=== PATIENT | male | born 1975 | race Caucasian/White ===

== ENCOUNTER 2024-01-02 12:35 | Inpatient (IN) | payer MEDICAID ==
[~2024-01-02] VITALS: Ht 160 cm; Wt 78.0 kg
[2024-01-02] MEDS ORDERED: SWABABLE VALVE TRANSFER SET EA MC ONE (13:13)
[2024-01-02] MEDS ORDERED: IV NORMAL SALINE 250 ML IV ONE (13:13)
[2024-01-02] MEDS ORDERED: IOHEXOL 350 100 ML INFUS..BTL ONE (13:13)
[2024-01-02 13:22] LABS: BASOPHILS % (AUTO) 0.8 % (0.0-2.0); EOSINOPHILS # (AUTO) 0.1 K/uL (0.0-0.7); EOSINOPHILS % (AUTO) 3.1 % (0.0-7.0); HEMATOCRIT 41.2 % (36.7-47.1); HEMOGLOBIN 14.5 g/dL (12.5-16.3); LYMPHOCYTES # (AUTO) 1.5 K/uL (0.8-4.8); LYMPHOCYTES % (AUTO) 33.6 % (20.5-51.5); MEAN CORPUSCULAR HEMOGLOBIN 29.9 uug (23.8-33.4); MEAN CORPUSCULAR HGB CONC 35 g/dL (32.5-36.3); MEAN CORPUSCULAR VOLUME 85.4 fL (73.0-96.2); MONOCYTES # (AUTO) 0.3 K/uL (0.1-1.30); MONOCYTES % (AUTO) 6.6 % (0.0-11.0); NEUTROPHILS # (AUTO) 2.5 K/uL (1.8-8.9); NEUTROPHILS % (AUTO) 55.9 % (38.5-71.5); PLATELET COUNT (AUTO) 150 K/uL (152-348); RED BLOOD CELL COUNT(AUTO) 4.83 MIL/uL (4.06-5.63); RED CELL DISTRIBUTION WIDTH 13.1 % (12.1-16.2); WHITE BLOOD COUNT (AUTO) 4.5 K/uL (3.6-10.2)
[2024-01-02 13:25] LABS: DIFFERENTIAL COMMENT 1
[2024-01-02 13:34] LABS: CALCIUM 8.8 mg/dL (8.5-10.1); CARBON DIOXIDE 26 mmol/L (21-32); CHLORIDE 106 mmol/L (98-107); CREATININE 0.8 mg/dL (0.6-1.3); GLUCOSE 186 mg/dL (74-106); POTASSIUM 3.3 mmol/L (3.5-5.1); SODIUM SERUM 143 mmol/L (136-145); UREA NITROGEN, BLOOD 12 mg/dL (7-18)
[2024-01-02 13:43] LABS: ALANINE AMINOTRANSFERASE 37 U/L (16-63); ALBUMIN 4.2 g/dL (3.4-5.0); ALKALINE PHOSPHATASE 127 U/L (50-136); ASPARTATE AMINOTRANSFERASE 8 U/L (15-37); BILIRUBIN,DIRECT 0.2 mg/dL (0.0-0.2); BILIRUBIN,TOTAL 0.6 mg/dL (0.2-1.0); TOTAL PROTEIN, SERUM 7.6 g/dL (6.4-8.2)
[2024-01-02] MEDS ORDERED: CLOPIDOGREL 75 MG TABLET ONE (13:48)
[2024-01-02] MEDS ORDERED: ASPIRIN 81 MG TAB.CHEW ONE ×2 (13:48→13:50)
[2024-01-02] MEDS: ASPIRIN 81 MG TAB.CHEW PO ONE (13:53)
[2024-01-02] MEDS: CLOPIDOGREL 75 MG TABLET PO ONE (13:53)
[2024-01-02] MEDS ORDERED: hydrALAZINE HCL 20 MG/1 ML VIAL IV PRN (15:00)
[2024-01-02] MEDS ORDERED: ONDANSETRON 4 MG/2 ML VIAL IV PRN (15:00)
[2024-01-02] MEDS ORDERED: DEXTROSE 50% 50 ML DISP.SYRIN IV PRN (15:00)
[2024-01-02] MEDS ORDERED: MORPHINE SULFATE 2 MG/1 ML DISP.SYRIN IVP PRN (15:00)
[2024-01-02 16:31] VITALS: BP 122/81; TEMP 98.1; O2SAT 99
[2024-01-02] MEDS: DOCUSATE SODIUM 100 MG CAPSULE PO SCH (17:00)
[2024-01-02] MEDS: BLOOD SUGAR DIAGNOSTIC 1 EACH STRIP VI SCH (17:15)
[2024-01-02] MEDS: INSULIN REGULAR, HUMAN 300 UNIT/3 ML VIAL SQ PRN (17:18)
[2024-01-02 20:11] VITALS: BP 120/74; TEMP 97.7; O2SAT 97
[2024-01-02] MEDS: ATORVASTATIN 40 MG TABLET PO SCH (20:20)
[2024-01-02] MEDS: HEPARIN SODIUM,PORCINE 5,000 UNITS/ML VIAL SQ SCH (20:22)
[2024-01-02 23:54] VITALS: BP 106/71; TEMP 97.6; O2SAT 98
[2024-01-03 04:00] VITALS: BP 105/73; TEMP 97.9; O2SAT 97
[2024-01-03] MEDS: ACETAMINOPHEN 325 MG TABLET PO PRN (06:04)
[2024-01-03 06:25] LABS: BASOPHILS % (AUTO) 0.9 % (0.0-2.0); EOSINOPHILS # (AUTO) 0.2 K/uL (0.0-0.7); EOSINOPHILS % (AUTO) 4.6 % (0.0-7.0); HEMATOCRIT 41.8 % (36.7-47.1); HEMOGLOBIN 14.6 g/dL (12.5-16.3); LYMPHOCYTES # (AUTO) 1.4 K/uL (0.8-4.8); LYMPHOCYTES % (AUTO) 31.3 % (20.5-51.5); MEAN CORPUSCULAR HEMOGLOBIN 29.9 uug (23.8-33.4); MEAN CORPUSCULAR HGB CONC 35 g/dL (32.5-36.3); MEAN CORPUSCULAR VOLUME 85.7 fL (73.0-96.2); MONOCYTES # (AUTO) 0.3 K/uL (0.1-1.30); MONOCYTES % (AUTO) 6.3 % (0.0-11.0); NEUTROPHILS # (AUTO) 2.6 K/uL (1.8-8.9); NEUTROPHILS % (AUTO) 56.9 % (38.5-71.5); PLATELET COUNT (AUTO) 157 K/uL (152-348); RED BLOOD CELL COUNT(AUTO) 4.88 MIL/uL (4.06-5.63); RED CELL DISTRIBUTION WIDTH 13.5 % (12.1-16.2); WHITE BLOOD COUNT (AUTO) 4.5 K/uL (3.6-10.2)
[2024-01-03 06:45] LABS: BILIRUBIN,TOTAL 1.1 mg/dL (0.2-1.0); CALCIUM 8.8 mg/dL (8.5-10.1); CREATININE 0.8 mg/dL (0.6-1.3); POTASSIUM 3.6 mmol/L (3.5-5.1); TOTAL PROTEIN, SERUM 7.4 g/dL (6.4-8.2)
[2024-01-03 07:18] LABS: *BILIRUBIN,URIN NEGATIVE (NEGATIVE); *BLOOD, URINE NEGATIVE (NEGATIVE); *CLARITY,URINE CLEAR (CLEAR); *COLOR,URINE YELLOW (YELLOW); *KETONES,URINE NEGATIVE (NEGATIVE); *PROTEIN,URINE NEGATIVE (NEGATIVE); LEUKOCYTE ESTERASE ,URINE NEGATIVE (NEGATIVE); NITRITE, URINE NEGATIVE (NEGATIVE); PH,URINE 6.5 (5.0-8.0); UGLUCOSE 2+ (NEGATIVE)
[2024-01-03 07:35] LABS: BACTERIA,URINE NONE SEEN /HPF (NONE SEEN); RBC,URINE 0-3 /HPF (0-3); SQUAMOUS EPITHELIAL CELL,UR NONE SEEN /HPF (NONE SEEN); WBC,URINE 0-3 /HPF (0-3)
[2024-01-03 07:38] LABS: *AMPHETAMINE, URINE NEGATIVE (NEGATIVE); *BARBITURATE, URINE NEGATIVE (NEGATIVE); *BENZODIAZEPINE, URINE NEGATIVE (NEGATIVE); *CANNABINOID, URINE NEGATIVE (NEGATIVE); *COCCAINE, URINE NEGATIVE (NEGATIVE); *OPIATE, URINE NEGATIVE (NEGATIVE); *PHENCYCLIDINE SCREEN,URINE NEGATIVE (NEGATIVE); FENTANYL, URINE NEGATIVE (NEGATIVE)
[2024-01-03 08:01] VITALS: BP 110/66; TEMP 98.2; O2SAT 98
[2024-01-03] MEDS: ASPIRIN EC 81 MG TABLET.DR PO SCH (08:55)
[2024-01-03 12:00] VITALS: BP 104/72; TEMP 98.1; O2SAT 98
[2024-01-03 16:11] VITALS: BP 111/70; TEMP 98.1; O2SAT 98
[2024-01-03 20:21] VITALS: BP 103/67; TEMP 98; O2SAT 98
[2024-01-04 00:21] VITALS: BP 102/60; TEMP 97.9; O2SAT 98
[2024-01-04 06:10] VITALS: BP 114/67; TEMP 98.1; O2SAT 98
[2024-01-04 08:00] VITALS: BP 105/68; TEMP 98.5; O2SAT 98
[2024-01-04] MEDS: METFORMIN HCL 500 MG TABLET PO SCH (09:45)
[2024-01-04 12:00] VITALS: BP 113/71; TEMP 98.9; O2SAT 97
[2024-01-04] MEDS ORDERED: METF-494 PO (16:23)
[2024-01-04] MEDS ORDERED: ASPI-495 PO (16:23)
[2024-01-04] MEDS ORDERED: ATOR40TA PO (16:23)
[2024-01-04 16:53] VITALS: BP 112/65; TEMP 98; O2SAT 97
[2024-01-04] MEDS ORDERED: INSULIN GLARGINE,HUM 300 UNITS/3 ML CARTRIDGE SQ SCH (21:00)
== END 2024-01-04 17:45 | disposition home or self-care (01) | DRG 47 ==
LOC: ER 12:37 → TELE3 15:54
PROVIDERS: ADMIT Internal Medicine; ATTEND Nurse Practitioner Acute Care
DX: G45.9 Transient cerebral ischemic attack, unspecified (principal); E11.65 Type 2 diabetes mellitus with hyperglycemia
CPT/HCPCS: 36415; 70450; 70496; 84100; 84484; 85025; 85730; 86850; 86900; 86901; 93005; 93307; G0378; J1644; J1815; Q9967